=== PATIENT | female | born 1955 | race Caucasian/White ===

== ENCOUNTER 2016-11-21 01:23 | Emergency (ER) | payer OTHER ==
[2016-11-21 01:46] VITALS: TEMP 98.7; BMI 24.0
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
[2016-11-21] MEDS ORDERED: Tobramycin 0.3% OPH OINT OS ONE (02:09)
[2016-11-21 02:33] VITALS: BP 152/90; PULSE 60; RESP 16; O2SAT 98
== END 2016-11-21 02:33 | disposition home or self-care (01) ==
LOC: ED 01:23
DX: H10.9 Unspecified conjunctivitis (principal)